=== PATIENT | female | born 1970 ===

== ENCOUNTER 2017-06-08 18:08 | Emergency (ER) | payer SELFPAY ==
[2017-06-08 18:17] VITALS: BMI 38.4
[2017-06-08] MEDS ORDERED: Morphine 4 MG/ML VIAL ONE ×2 (18:21→19:18)
[2017-06-08 18:55] VITALS: BP 130/68; PULSE 68; RESP 22; O2SAT 96
--- NOTE | 2017-06-08 19:53 | C.PDOC ---
History Of Present Illness 46-year-old female, presents to the emergency department with complaints of right ankle pain s/p mechanical trip and fall prior to arrival. Patient denies any other injury. No head trauma. Unable to weight. Denies change in sensation. Time Seen by Provider: 06/08/17 18:14 Chief Complaint (Nursing): Trauma History Per: Patient History/Exam Limitations: no limitations Past Medical History Reviewed: Historical Data, Nursing Documentation, Vital Signs Vital Signs: Last Vital Signs Temp Pulse 68 06/08/17 18:54 Resp 22 06/08/17 18:54 BP 130/68 06/08/17 18:54 Pulse Ox 96 06/08/17 20:02 Family History: States: No Known Family Hx - Social History Hx Alcohol Use: No Hx Substance Use: No - Immunization History Hx Tetanus Toxoid Vaccination: No Hx Influenza Vaccination: No Hx Pneumococcal Vaccination: No Review Of Systems Musculoskeletal: Positive for: Other (right ankle pain). Negative for: Neck Pain, Back Pain Neurological: Negative for: Weakness, Numbness Physical Exam - Physical Exam Appears: Well, Non-toxic, No Acute Distress Skin: Normal Color, Warm, Dry, No Rash Head: Atraumatic, Normacephalic Eye(s): bilateral: Normal Inspection, EOMI Nose: Normal Oral Mucosa: Moist Neck: Normal ROM, Supple Chest: Symmetrical Respiratory: No Accessory Muscle Use Extremity: Tenderness, Capillary Refill (<2 seconds), No Deformity, Swelling, Other (right ankle: diffuse tenderness and mild swelling. Painful range of motion.) Pulses: Left Dorsalis Pedis: Normal, Right Dorsalis Pedis: Normal Neurological/Psych: Oriented x3, Normal Speech, Normal Sensation ED Course And Treatment O2 Sat by Pulse Oximetry: 96 (RA) Pulse Ox Interpretation: Normal - Other Rad Ankle XR X-Ray: Interpreted by Me, Viewed By Me Interpretation: (+) bimalleolar fx Progress Note: Patient treated with Morphine and Zofran. XR R ankle ordered and reviewed. On reassessment, patients pain has significantly improved. Posterior and U shaped splint appled by me. Case discussed with Dr Georges who evlauated XR and agreed upon plan and discharge. Dr Billy, utility person ortho contacted. He called back after pt was discharge. Agreed upon plan and outpt f/u. Pt was instructed strict otupt ff/u. Disposition - Disposition Referrals: [facility] [Outside] José Miguel Billy III, MD [Staff Provider] - Disposition: HOME/ ROUTINE Disposition Time: 19:59 Condition: STABLE Additional Instructions: Call the bone doctor tomorrow morning. Follow up with the clinic Tuesday morning. Keep leg elevated and iced. Return to ER if symptoms persist or worsen. Prescriptions: Ibuprofen [Motrin Tab] 800 mg PO TID PRN #20 tab PRN Reason: Pain, Mild (1-3) oxyCODONE/Acetaminophen [Percocet 5/325 mg Tab] 1 tab PO QID PRN #20 tab PRN Reason: Pain Instructions: Ankle Fracture Forms: Hop[employer] (Japanese) - Clinical Impression Clinical Impression: Bimalleolar fracture - Scribe Statement The provider has reviewed the documentation as recorded by the Scribe (Betito Gaytan) All medical record entries made by the Scribe were at my direction and personally dictated by me. I have reviewed the chart and agree that the record accurately reflects my personal performance of the history, physical exam, medical decision making, and the department course for this patient. I have also personally directed, reviewed, and agree with the discharge instructions and disposition.
--- NOTE | 2017-06-09 08:12 | RAD ---
PROCEDURE: Right Ankle Radiographs. HISTORY: trauma COMPARISON: None FINDINGS: BONES: Transverse fracture medial malleolus without any significant displacement. Small fracture fragment noted along the medial aspect of the ankle mortise. . Oblique fracture distal fibula with mild lateral displacement of distal fracture fragment and 1 shaft width posterior displacement of the distal fracture fragment. Vertical fracture posterior malleolus with mild superior displacement of the posterior fracture fragment. Small plantar calcaneal spur. Mild anterior subluxation of the tibia with respect to the talus. Post casting image demonstrates unchanged anatomic alignment of the distal fibula fracture, mild improved anatomic alignment of the posterior tibia fracture, and improved anatomic alignment of the tibia with respect to the talus; minimal anterior subluxation remains as well as minimal widening of the anterior ankle mortise. JOINTS: Talar dome intact. Additional details above. SOFT TISSUES: Soft tissue swelling noted about the ankle. OTHER FINDINGS: None. IMPRESSION: Trimalleolar ankle fracture as above
== END 2017-06-08 20:37 | disposition home or self-care (01) ==
LOC: C.ER 18:08
DX: S82.841A Displaced bimalleolar fracture of right lower leg, initial encounter for closed fracture (principal); W01.0XXA Fall on same level from slipping, tripping and stumbling without subsequent striking against object, initial encounter
CPT/HCPCS: 29515; 73610; 96372; 99285; J2270; J2405